=== PATIENT | female | born 1955 | race Caucasian/White ===

== ENCOUNTER 2016-03-16 03:33 | Emergency (ER) | payer BC ==
[~2016-03-16] VITALS: Ht 152.4 cm; Wt 100.0 kg
[~2016-03-16 03:33] MED LIST: ADIPEX-P37.5 MG PO; ASPIRIN E.C. 8181 MG PO; B COMPLEX1 TA2 PO; CALTRATE 600 +1 TAB PO; CHLOR TRIMETON 44 MG; EPA FISH OIL1000 MG PO; L-LYSINE500 M1 PO; MULTIVITAMIN FO1 CAP PO; NORVASC 10MG10 MG PO; PRILOSEC 20MG20 MG PO; TOPROL XL 50MG50 MG PO; VITAMINC1000TA PO; WELLBUTRIN SR150 M1 PO; ZOCOR 20MG20 MG PO; ZOLOFT 50MG50 MG PO
[2016-03-16 03:42] VITALS: TEMP 97.8
[2016-03-16] MEDS ORDERED: GLUCOPHAGE500 MG/TAB PO (03:49)
[2016-03-16 03:59] LABS: INR 1.1 (0.8-3.0); PROTHROMBIN TIME 11.7 SECONDS (9.7-12.8)
[2016-03-16 04:01] LABS: PARTIAL THROMBOPLASTIN TIME 29.2 SECONDS (26.0-37.0)
[2016-03-16 04:06] LABS: ADJUSTED CALCIUM 9.4 mg/dL (8.4-10.2); ALANINE AMINOTRANSFERASE 67 U/L (9-52); ALBUMIN 4.2 gm/dL (3.5-5.0); ALKALINE PHOSPHATASE 69 U/L (50-136); ANION GAP 9 mmol/L (7-16); BILIRUBIN,TOTAL 0.6 mg/dL (0.0-1.0); BLOOD UREA NITROGEN 17 mg/dL (7-17); CALCIUM 9.6 mg/dL (8.4-10.2); CARBON DIOXIDE 24 mmol/L (22-30); CHLORIDE 106 mmol/L (98-107); CREATININE, serum 0.82 mg/dL (0.52-1.25); GLUCOSE 115 mg/dL (74-106); POTASSIUM 4.1 mmol/L (3.4-5.0); SODIUM 139 mmol/L (137-145); TOTAL PROTEIN 7.4 gm/dL (6.4-8.2)
[2016-03-16 04:16] LABS: BASO % 0.6 % (0.0-2.0); EOS # 0.1 (0.0-0.7); EOS % 1.7 % (0-4.0); GRAN # 3.8 (1.4-6.5); GRAN % 70.4 % (42.2-75.2); LYMPH # 1.2 (1.2-3.4); LYMPH % 21.7 % (20.0-51.0); MEAN CELL VOLUME 96 fl (80.0-100.0); MEAN CORPUSCULAR HGB CONC 34 g/dl (33.0-37.0); MEAN PLATELET VOLUME 10.6 fl (7.4-10.4); MONO # 0.3 (0.1-0.6); MONO % 5.4 % (1.7-9.3); PLATELET COUNT 103 K/mm3 (130-400); RED BLOOD COUNT 3.66 M/mm3 (4.10-5.30); REDCELL DISTRIBUTION WIDTH-CV 12.2 % (11.5-14.5); WHITE BLOOD COUNT 5.3 K/mm3 (4.8-10.8)
[2016-03-16 04:18] LABS: HEMATOCRIT 35.1 % (37.0-47.0); HEMOGLOBIN 11.8 g/dl (12.5-16.0); MEAN CORPUSCULAR HEMOGLOBIN 32 pg (27.0-31.0); TROPONIN-I < 0.012 ng/mL (0.000-0.034)
[2016-03-16 06:33] VITALS: BP 124/54; PULSE 62
[2016-05-27] MEDS ORDERED: GLUCOPHAGE XR500 M1 PO (11:57)
== END 2016-03-16 06:40 | disposition home or self-care (01) ==
LOC: COL.ER 03:33
PROVIDERS: Family Medicine
DX: R07.9 Chest pain, unspecified (principal)

== ENCOUNTER → 2016-05-16 | Outpatient (CLI) | payer BC ==
[~2016-05-16] VITALS: Ht 152.4 cm; Wt 100.2 kg
[~2016-05-16] MED LIST changes: +GLUCOPHAGE XR500 M1 PO; +GLUCOPHAGE500 MG/TAB PO
[2016-05-27 11:48] VITALS: BP 138/86; PULSE 64
[2016-06-24 12:57] VITALS: BP 154/86; PULSE 56
== END ==
LOC: LIGHT 10:35
DX: E88.81 Metabolic syndrome and other insulin resistance (principal); I10 Essential (primary) hypertension; G47.33 Obstructive sleep apnea (adult) (pediatric); E66.01 Morbid (severe) obesity due to excess calories; Z68.41 Body mass index [BMI] 40.0-44.9, adult

== ENCOUNTER → 2017-03-07 | Outpatient (CLI) | payer BC | LOC: MC.RAD 14:12 | DX: Z12.31 Encounter for screening mammogram for malignant neoplasm of breast (principal) ==

== ENCOUNTER → 2018-05-14 | Outpatient (CLI) | payer BC | LOC: MC.RAD 04-17 14:40 | DX: Z12.31 Encounter for screening mammogram for malignant neoplasm of breast (principal); Z98.82 Breast implant status ==

== ENCOUNTER 2018-07-23 16:15 | Outpatient (RCR) | payer BC | END 2018-07-23 17:09 | disposition home or self-care (01) | LOC: WSPT 16:15 | DX: M77.11 Lateral epicondylitis, right elbow (principal); M25.552 Pain in left hip; M25.551 Pain in right hip ==

== ENCOUNTER → 2018-08-25 | Outpatient (CLI) | payer BC | LOC: COL.VAS 12:30 | DX: I82.401 Acute embolism and thrombosis of unspecified deep veins of right lower extremity (principal); R58 Hemorrhage, not elsewhere classified ==

== ENCOUNTER → 2019-06-24 | Outpatient (CLI) | payer BC | LOC: MC.RAD 08:12 | DX: Z12.31 Encounter for screening mammogram for malignant neoplasm of breast (principal) ==

== ENCOUNTER → 2020-07-05 | Outpatient (CLI) | payer MEDICARE, BC ==
[~2020-07-05] MED LIST changes: +CEPHALEXIN500 M1 PO; +COZAAR 50MG50 MG/TAB PO; +HCTZ 25MG TAB25 MG PO; +ICAPS AREDS2 S1 EACH PO; +PROBIOTIC ACID1 EAC3 PO
== END ==
LOC: MC.RAD 07:30
DX: Z12.31 Encounter for screening mammogram for malignant neoplasm of breast (principal); Z98.82 Breast implant status

== ENCOUNTER → 2022-05-30 | Outpatient (CLI) | payer MEDICARE, BC ==
[2022-05-30 12:02] LABS: BASO # 0.1 K/mm3 (0.0-0.2); BASO % 1.4 % (0.0-2.0); EOS # 0.1 K/mm3 (0.0-0.7); EOS % 3.2 % (0.0-4.0); GRAN # 2.4 K/mm3 (1.4-6.5); GRAN % 54.7 % (42.2-75.2); LYMPH # 1.5 K/mm3 (1.2-3.4); LYMPH % 33.6 % (20.0-51.0); MEAN CELL VOLUME 98 fl (80.0-100.0); MEAN CORPUSCULAR HEMOGLOBIN 34 pg (27-31); MEAN CORPUSCULAR HGB CONC 34 g/dl (33.0-37.0); MEAN PLATELET VOLUME 11.8 fl (7.4-10.4); MONO # 0.3 K/mm3 (0.1-0.6); MONO % 6.9 % (1.7-9.3); RED BLOOD COUNT 3.58 M/mm3 (4.10-5.30); REDCELL DISTRIBUTION WIDTH-CV 12.6 % (11.5-14.5)
[2022-05-30 12:12] LABS: HEMATOCRIT 35.2 % (37.0-47.0)
[2022-05-30 12:14] LABS: PLATELET COUNT 183 K/mm3 (130-400)
== END ==
LOC: COL.LAB 11:37
PROVIDERS: Internal Medicine
DX: D69.1 Qualitative platelet defects (principal)